=== PATIENT | male | born 1945 | race Caucasian/White ===

== ENCOUNTER 2020-11-29 21:48 | Observation (INO) | payer MEDICARE ==
[2020-11-29] MEDS ORDERED: ASPIRIN 325 MG TAB PO STA (22:08)
[2020-11-29 22:32] LABS: Basophils # (A) 0.1 k/uL (0-0.2); Basophils % (A) 1 %; Eosinophils # (A) 0.3 k/uL (0-0.7); Eosinophils % (A) 3 %; HCT 44.6 % (39.0-53.0); HGB 15.2 gm/dL (13.0-17.5); Lymphocytes # (A) 2.3 k/uL (1.0-4.8); Lymphocytes % (A) 19 %; MCH 28.8 pg (25.0-35.0); MCV 84.6 fL (80.0-100.0); Mean Platelet Volume 9.2; Monocytes # (A) 0.9 k/uL (0-1.0); Monocytes % (A) 7 %; Neutrophils # (A) 8.4 k/uL (1.3-7.7); Neutrophils % (A) 69 %; Platelet Count 220 k/uL (150-450); RBC 5.27 m/uL (4.30-5.90); RDW 14.8 % (11.5-15.5); WBC 12.1 k/uL (3.8-10.6)
[2020-11-29 22:42] LABS: ALT 19 U/L (4-49); AST 19 U/L (17-59); African American GFR (CKD) >90 (>60 ml/min/1.73 sqM); Albumin 3.9 g/dL (3.5-5.0); Alkaline Phosphatase 79 U/L (38-126); Anion Gap 9 mmol/L; Blood Urea Nitrogen 18 mg/dL (9-20); Calcium 9.5 mg/dL (8.4-10.2); Carbon Dioxide 28 mmol/L (22-30); Chloride 102 mmol/L (98-107); Glucose 121 mg/dL (74-99); Non-African American GFR(CKD) 86 (>60 ml/min/1.73 sqM); Potassium 4.4 mmol/L (3.5-5.1); Sodium 139 mmol/L (137-145); Total Bilirubin 0.4 mg/dL (0.2-1.3); Total Protein 6.9 g/dL (6.3-8.2)
--- NOTE | 2020-11-29 22:43 | ED ---
General Adult HPI - General Chief complaint: Neuro Symptoms/Deficit Stated complaint: TIA Time Seen by Provider: 11/29/20 21:55 Source: patient, EMS Mode of arrival: EMS Limitations: no limitations - History of Present Illness Initial comments: 75-year-old male past history of asthma, COPD, diabetes who presents to the emergency department with reported symptoms of a possible TIA. He reports that around 3 PM he had 45 minutes worth of right-sided facial droop, right upper and lower extremity weakness. His noted the symptoms. He went into [facility] and by the time he got there his symptoms resolved. He does report to a similar event on November 12 when he was at the [facility]. Patient denies previous history of stroke. Denies any recurrence of the symptoms today. His workup at [facility] was essentially negative. They did request transfer for neurology consultation. Patient denies chest pain or shortness of breath. No headaches, fevers or chills. No alleviating, Perceptin or modifying factors - Related Data Home Medications Medication Instructions Recorded Confirmed Albuterol Sulfate [Proventil Hfa] 2 puff INHALATION RT-Q6H PRN 10/27/15 11/29/20 Atorvastatin Calcium [Lipitor] 80 mg PO DAILY 10/27/15 11/29/20 Isosorbide Mononitrate ER [Imdur] 60 mg PO DAILY 10/27/15 11/29/20 metFORMIN HCL 1,000 mg PO BID 10/27/15 11/29/20 Insulin Glargine [Lantus] 55 unit SQ Q12H 10/28/15 11/29/20 Albuterol Nebulized [Ventolin 2.5 mg INHALATION RT-Q4H PRN 11/29/20 11/29/20 Nebulized] Aspirin EC [Ecotrin Low Dose] 81 mg PO DAILY 11/29/20 11/29/20 Budesonide/Formoterol Fumarate 2 puff INHALATION RT-BID 11/29/20 11/29/20 [Symbicort 160-4.5 Mcg Inhaler] Cetirizine HCl [Zyrtec] 10 mg PO DAILY 11/29/20 11/29/20 Cholecalciferol [Vitamin D3 (25 25 mcg PO DAILY 11/29/20 11/29/20 Mcg = 1000 Iu)] Clotrimazole Cream [Lotrimin Cream] 1 applic TOPICAL BID 11/29/20 11/29/20 Cyanocobalamin (Vitamin B-12) 1,000 mcg PO DAILY 11/29/20 11/29/20 [Vitamin B-12] Donepezil [Aricept] 10 mg PO HS 11/29/20 11/29/20 Fluocinonide 1 applic TOPICAL BID PRN 11/29/20 11/29/20 Fluticasone Nasal [place] [Flonase 2 spray EA NOSTRIL DAILY PRN 11/29/20 11/29/20 Nasal [place]] Furosemide [Lasix] 20 mg PO DAILY 11/29/20 11/29/20 HYDROcodone/APAP 10-325MG [[place] 1 tab PO Q6H PRN 11/29/20 11/29/20 10-325] Ketoconazole [Nizoral A-D] 1 applic TOPICAL DIRECTED 11/29/20 11/29/20 Liraglutide [Victoza 2-Ar] 1.2 mg SQ DAILY 11/29/20 11/29/20 Losartan [Cozaar] 50 mg PO DAILY 11/29/20 11/29/20 Metoprolol Tartrate [Lopressor] 25 mg PO BID 11/29/20 11/29/20 Montelukast [Singulair] 10 mg PO DAILY 11/29/20 11/29/20 Multivitamins, Thera [Multivitamin 1 tab PO BID 11/29/20 11/29/20 (formulary)] Omeprazole 20 mg PO DAILY 11/29/20 11/29/20 Tiotropium 18 Mcg/Puff [Spiriva] 1 puff INHALATION RT-DAILY 11/29/20 11/29/20 Triamcinolone 0.025% Cream 1 applic TOPICAL BID 11/29/20 11/29/20 [Kenalog 0.025% Cream] methocarbamoL [Robaxin] 500 mg PO BID 11/29/20 11/29/20 Previous Rx's Medication Instructions Recorded Clopidogrel [Plavix] 75 mg PO DAILY #30 tab 12/01/20 Doxycycline [Vibramycin] 100 mg PO BID #4 cap 12/01/20 Allergies Allergy/AdvReac Type Severity Reaction Status Date / Time No Known Allergies Allergy Verified 11/29/20 22:01 Review of Systems ROS Statement: Those systems with pertinent positive or pertinent negative responses have been documented in the HPI. ROS Other: All systems not noted in ROS Statement are negative. Past Medical History Past Medical History: Asthma, COPD, Diabetes Mellitus, Hypertension, Pneumonia, Respiratory Disorder, Sleep Apnea/CPAP/BIPAP History of Any Multi-Drug Resistant Organisms: None Reported Past Surgical History: Heart Catheterization With Stent, Orthopedic Surgery, Tonsillectomy Additional Past Surgical History / Comment(s): Carpal Tunnel, right jaw cartilage replacement, umbilical hernia repair. Stent placement x2, about 20yrs ago-unsure date Past Anesthesia/Blood Transfusion Reactions: No Reported Reaction Date of Last Stent Placement:: unknown, around 20yrs ago Past Psychological History: Anxiety Past Alcohol Use History: Daily Past Drug Use History: None Reported - Past Family History Mother Family Medical History: Cancer Additional Family Medical History / Comment(s): of lung Ca Father Family Medical History: Diabetes Mellitus, Dialysis General Exam Limitations: no limitations General appearance: alert, in no apparent distress Head exam: Present: atraumatic, normocephalic, normal inspection Eye exam: Present: normal appearance, PERRL, EOMI. Absent: scleral icterus, conjunctival injection, periorbital swelling ENT exam: Present: mucous membranes moist, other (right TM is sim, opaque, appears scarred) Neck exam: Present: normal inspection. Absent: tenderness, meningismus, lymphadenopathy Respiratory exam: Present: normal lung sounds bilaterally. Absent: respiratory distress, wheezes, rales, rhonchi, stridor Cardiovascular Exam: Present: regular rate, normal rhythm, normal heart sounds. Absent: systolic murmur, diastolic murmur, rubs, gallop, clicks GI/Abdominal exam: Present: soft, normal bowel sounds. Absent: distended, tenderness, guarding, rebound, rigid Extremities exam: Present: normal inspection, full ROM, normal capillary refill. Absent: tenderness, pedal edema, joint swelling, calf tenderness Back exam: Present: normal inspection Neurological exam: Present: alert, oriented X3, CN II-XII intact Psychiatric exam: Present: normal affect, normal mood Skin exam: Present: warm, dry, intact, normal color. Absent: rash Course Vital Signs 11/29/20 21:55 Temperature 98.0 F Pulse Rate 75 Respiratory 20 Rate Blood Pressure 137/75 O2 Sat by Pulse 95 Oximetry EKG Findings - EKG Comments: EKG Findings:: EKG demonstrates a normal sinus rhythm with a ventricular rate of 73. GA interval 176. QRS 90. QTC 427. No acute ST segment elevations or depressions Medical Decision Making - Medical Decision Making Upon arrival the patient is placed into room 6. A thorough history and physical exam was performed. NIH is negative at this time. I did review the patient's laboratory studies and CT. Laboratory studies are repeated. Did recommend hospitalization for patient did agree to. Spoke with Dr. Mckenzie who agreed to admit the patient. I will consult neurology. Echo and carotid Dopplers ordered. Patient was given a full dose aspirin as he has not received one yet. Patient remained stable condition awaiting a bed on the floor - Lab Data Result diagrams: 11/30/20 03:36 11/30/20 03:36 Lab Results 11/29/20 11/29/20 Range/Units 22:18 22:18 WBC 12.1 H (3.8-10.6) k/uL RBC 5.27 (4.30-5.90) m/uL Hgb 15.2 (13.0-17.5) gm/dL Hct 44.6 (39.0-53.0) % MCV 84.6 (80.0-100.0) fL MCH 28.8 (25.0-35.0) pg MCHC 34.0 (31.0-37.0) g/dL RDW 14.8 (11.5-15.5) % Plt Count 220 (150-450) k/uL MPV 9.2 Neutrophils % 69 % Lymphocytes % 19 % Monocytes % 7 % Eosinophils % 3 % Basophils % 1 % Neutrophils # 8.4 H (1.3-7.7) k/uL Lymphocytes # 2.3 (1.0-4.8) k/uL Monocytes # 0.9 (0-1.0) k/uL Eosinophils # 0.3 (0-0.7) k/uL Basophils # 0.1 (0-0.2) k/uL Sodium 139 (137-145) mmol/L Potassium 4.4 (3.5-5.1) mmol/L Chloride 102 (98-107) mmol/L Carbon Dioxide 28 (22-30) mmol/L Anion Gap 9 mmol/L BUN 18 (9-20) mg/dL Creatinine 0.86 (0.66-1.25) mg/dL Est GFR (CKD-EPI)AfAm >90 (>60 ml/min/1.73 sqM) Est GFR (CKD-EPI)NonAf 86 (>60 ml/min/1.73 sqM) Glucose 121 H (74-99) mg/dL Calcium 9.5 (8.4-10.2) mg/dL Total Bilirubin 0.4 (0.2-1.3) mg/dL AST 19 (17-59) U/L ALT 19 (4-49) U/L Alkaline Phosphatase 79 (38-126) U/L Total Protein 6.9 (6.3-8.2) g/dL Albumin 3.9 (3.5-5.0) g/dL Disposition Clinical Impression: Transient cerebral ischemia Disposition: ADMITTED IP TO THIS [facility] Condition: Stable Is patient prescribed a controlled substance at d/c from ED?: No Decision to Admit Reason: Admit from EC Decision Date: 11/29/20 Decision Time: 22:55
[2020-11-29] MEDS ORDERED: NALOXONE 0.4 MG/ML 1 ML VIAL IV PRN (22:55)
[2020-11-29] MEDS ORDERED: FLUTICASONE 50MCG/SPRAY NASAL 16GM EA NOSTRIL PRN (23:46)
[2020-11-29] MEDS ORDERED: BETAMETHASONE DIPROPIONATE 0.05% CREAM 15 GM TUBE TOPICAL PRN (23:46)
[2020-11-29] MEDS ORDERED: ALBUTEROL HFA INHALER INHALATION PRN (23:46)
[2020-11-30] MEDS: INSULIN DETEMIR (LEVEMIR) 100 UNIT/ML SYR SQ SCH ×3 (00:36→22:21)
[2020-11-30] MEDS: ATORVASTATIN 80 MG TAB PO SCH ×2 (00:36→08:13)
[2020-11-30 00:43] LABS: Glucose,Whole Blood 170 mg/dL (75-99)
[2020-11-30 04:14] LABS: Basophils # (A) 0.1 k/uL (0-0.2); Basophils % (A) 1 %; Eosinophils # (A) 0.3 k/uL (0-0.7); Eosinophils % (A) 3 %; HCT 44.1 % (39.0-53.0); HGB 14.5 gm/dL (13.0-17.5); Lymphocytes # (A) 2.3 k/uL (1.0-4.8); Lymphocytes % (A) 22 %; MCH 28.4 pg (25.0-35.0); MCHC 32.9 g/dL (31.0-37.0); MCV 86.3 fL (80.0-100.0); Mean Platelet Volume 9.5; Monocytes # (A) 0.8 k/uL (0-1.0); Monocytes % (A) 8 %; Neutrophils % (A) 66 %; Platelet Count 206 k/uL (150-450); RBC 5.11 m/uL (4.30-5.90); RDW 14.6 % (11.5-15.5); WBC 10.7 k/uL (3.8-10.6)
[2020-11-30 04:24] LABS: African American GFR (CKD) >90 (>60 ml/min/1.73 sqM); Anion Gap 7 mmol/L; Blood Urea Nitrogen 19 mg/dL (9-20); Calcium 9.4 mg/dL (8.4-10.2); Carbon Dioxide 28 mmol/L (22-30); Chloride 101 mmol/L (98-107); Glucose 186 mg/dL (74-99); Non-African American GFR(CKD) 83 (>60 ml/min/1.73 sqM); Potassium 4.4 mmol/L (3.5-5.1); Sodium 136 mmol/L (137-145)
[2020-11-30 07:08] LABS: Glucose,Whole Blood 104 mg/dL (75-99)
[2020-11-30] MEDS: FUROSEMIDE 20 MG TAB PO SCH (08:13)
[2020-11-30] MEDS: PANTOPRAZOLE 40 MG TABLET PO SCH (08:13)
[2020-11-30] MEDS: CHOLECALCIFEROL 25 MCG (1000 IU) TABLET PO SCH (08:13)
[2020-11-30] MEDS: ASPIRIN 81 MG PO SCH (08:13)
[2020-11-30] MEDS: CYANOCOBALAMIN 500 MCG TAB PO SCH (08:13)
[2020-11-30] MEDS: MULTIVITAMINS, THERA 1 EACH TAB PO SCH ×2 (08:13→22:20)
[2020-11-30] MEDS: METOPROLOL TARTRATE 25 MG TAB PO SCH ×2 (08:13→22:20)
[2020-11-30] MEDS: MONTELUKAST 10 MG TAB PO SCH (08:14)
[2020-11-30] MEDS: ISOSORBIDE MONONITRATE ER 60 MG TAB.ER.24H PO SCH (08:14)
[2020-11-30] MEDS: LOSARTAN 50 MG TAB PO SCH (08:14)
[2020-11-30] MEDS: LORATADINE 10 MG TAB PO SCH (08:14)
[2020-11-30] MEDS: methocarbamoL 500 MG TAB PO SCH ×2 (08:14→22:20)
[2020-11-30] MEDS: IPRATROPIUM 0.5 MG/2.5 ML NEBU INHALATION SCH ×4 (08:30→20:05)
[2020-11-30] MEDS: ALBUTEROL NEBULIZED 2.5 MG/3 ML INHALATION PRN ×2 (08:30→11:36)
--- NOTE | 2020-11-30 10:05 | US ---
EXAMINATION TYPE: US carotid duplex BILAT DATE OF EXAM: 11/30/2020 COMPARISON: NONE CLINICAL HISTORY: suspected tia. TIA EXAM MEASUREMENTS: RIGHT: Peak Systolic Velocity (PSV) cm/sec ----- Right CCA: 102.6 ----- Right ICA: 164.0 ----- Right ECA: 175.6 ICA/CCA ratio: 1.6 RIGHT: End Diastole cm/sec ----- Right CCA: 27.0 ----- Right ICA: 47.9 ----- Right ECA: 38.6 LEFT: Peak Systolic Velocity (PSV) cm/sec ----- Left CCA: 99.5 ----- Left ICA: 114.0 ----- Left ECA: 125.3 ICA/CCA ratio: 1.1 LEFT: End Diastole cm/sec ----- Left CCA: 18.7 ----- Left ICA: 23.6 ----- Left ECA: 0 VERTEBRALS (direction of flow): Right Vertebral: Antegrade Left Vertebral: Antegrade Rhythm: Normal , Color Doppler, spectral Doppler imaging performed of the carotid arteries. Waveform analysis does n ot show significant stenosis of the internal carotid arteries. No significant stenosis seen IMPRESSION: No hemodynamic significant stenosis of the proximal internal carotid arteries by Doppler criteria, an indirect measurement of carotid stenosis Criteria for Assigning % of Stenosis / Diameter reduction (Estimation based on the indirect measurements of the internal carotid artery velocities (ICA PSV). 1. Normal (no stenosis)=ICA PSV < 125 cm/s: ratio < 2.0: ICA EDV<40 cm/s. 2. Less than 50% stenosis=ICA PSV < 125 cm/s: ratio < 2.0: ICA EDV<40 cm/s. 3. 50 to 69% stenosis=ICA PSV of 125 to 230 cm/s: ration 2.0 ? 4.0: ICA EDV 40-100 cm/s. 4. Greater than 70% stenosis to near occlusion= ICA PSV > 230 cm/s: ratio > 4.0: ICA EDV > 100 cm/s. 5. Near occlusion= ICA PSV velocities may be low or undetectable: variable ratio and ICA EDV. 6. Total occlusion=unable to detect flow.
--- NOTE | 2020-11-30 10:39 | XR ---
EXAMINATION TYPE: XR chest 2V DATE OF EXAM: 11/30/2020 COMPARISON: Prior chest x-ray 10/30/2015 HISTORY: Pneumonia TECHNIQUE: Frontal and lateral views of the chest are obtained. FINDINGS: Some strand-like densities are present at the lung bases which may reflect scarring or ate lectasis. Patient is rotated. Cardiac mediastinal silhouette is stable. Prominence of pulmonary arter y may be indicative of underlying pulmonary artery hypertension. No evident pneumothorax or pleural e ffusion. The aorta is dense. Increased AP diameter chest with flattening the hemidiaphragms is consis tent with COPD. IMPRESSION: Possible basilar atelectasis or scarring, correlate to exclude pneumonia.
[2020-11-30 11:33] LABS: Glucose,Whole Blood 110 mg/dL (75-99)
--- NOTE | 2020-11-30 12:11 | P.CNNES ---
History of Present Illness Consult date: 11/30/20 Requesting physician: Gail Granados Reason for Consult: Acute transient right-sided weakness History of Present Illness: Patient is a 75-year-old male came to the hospital by ambulance yesterday at 9:48 PM for TIA. Patient states that yesterday he developed sudden onset of right hand becoming numb, weak, could not pick Anything with his right hand. Shortly after his right side of the face felt droopy. Than his right leg became numb and could not stand on the right leg. The symptoms lasted for 30-45 minutes, and then started slowly improving, from hand to the face and the last one to improve was the right leg. Symptoms have completely resolved. He denied any problem with vision, slurred speech, double vision or dysphagia. Patient initially went to [facility], but then was transferred to [facility] for neurological evaluation. Patient states that he had exactly similar spell on 11/12/2020, lasting for the same amount of time, but he did not seek medical attention for that event. Denies any other history of strokes TIA. Vital signs on arrival blood pressure 137/75, pulse rate 75 temperature 98.0. EKG shows normal sinus rhythm. Possible anterior infarct, age undetermined. Carotid Doppler showed no hemodynamically significant stenosis of the proximal ICA by Doppler criteria. Antegrade flow in both vertebral arteries. Blood test shows WBC 12.1 hemoglobin 15.2, platelets 220. Chem-20 is normal. Patient's last hemoglobin A1c 7.0 on 10/27/2015. Patient takes aspirin 81 mg, Lipitor 80 mg, Aricept 10 mg besides other medications for blood pressure and diabetes. Patient states that he has diabetes for 15 years, hypertension. He smoked 2-3 pack per day for 30 years, quit 12 years ago. He also used to drink, starting from age 20, and quit 12 years ago. Denies any drugs. Patient also states that he used to take Plavix for about 10-15 years, after he had undergone cardiac stenting. He stopped Plavix several years ago and started full aspirin 325 mg daily. Patient was noticing a lot of ringing in the ears, therefore the dose of aspirin was decreased to 81 mg just 3 days ago. Review of Systems As above in detail. All other review of systems unremarkable. Patient denies any chest pain shortness of breath wheezing or cough. Denies any abdominal pain nausea vomiting diarrhea. All other 14 point review of systems reviewed and noncontributory. Past Medical History Past Medical History: Asthma, COPD, Diabetes Mellitus, Hypertension, Pneumonia, Respiratory Disorder, Sleep Apnea/CPAP/BIPAP History of Any Multi-Drug Resistant Organisms: None Reported Past Surgical History: Heart Catheterization With Stent, Orthopedic Surgery, Tonsillectomy Additional Past Surgical History / Comment(s): Carpal Tunnel, right jaw cartil age replacement, umbilical hernia repair. Stent placement x2, about 20yrs ago- unsure date Past Anesthesia/Blood Transfusion Reactions: No Reported Reaction Date of Last Stent Placement:: unknown, around 20yrs ago Past Psychological History: Anxiety Smoking Status: Former smoker Past Alcohol Use History: Daily Additional Past Alcohol Use History / Comment(s): about a case of beer daily Past Drug Use History: None Reported - Past Family History Mother Family Medical History: Cancer Additional Family Medical History / Comment(s): of lung Ca Father Family Medical History: Diabetes Mellitus, Dialysis Medications and Allergies Home Medications Medication Instructions Recorded Confirmed Type Albuterol Sulfate [Proventil Hfa] 2 puff INHALATION RT-Q6H PRN 10/27/15 11/29/20 History Atorvastatin Calcium [Lipitor] 80 mg PO DAILY 10/27/15 11/29/20 History Isosorbide Mononitrate ER [Imdur] 60 mg PO DAILY 10/27/15 11/29/20 History metFORMIN HCL 1,000 mg PO BID 10/27/15 11/29/20 History Insulin Glargine [Lantus] 55 unit SQ Q12H 10/28/15 11/29/20 History Albuterol Nebulized [Ventolin 2.5 mg INHALATION RT-Q4H PRN 11/29/20 11/29/20 History Nebulized] Aspirin EC [Ecotrin Low Dose] 81 mg PO DAILY 11/29/20 11/29/20 History Budesonide/Formoterol Fumarate 2 puff INHALATION RT-BID 11/29/20 11/29/20 History [Symbicort 160-4.5 Mcg Inhaler] Cetirizine HCl [Zyrtec] 10 mg PO DAILY 11/29/20 11/29/20 History Cholecalciferol [Vitamin D3 (25 25 mcg PO DAILY 11/29/20 11/29/20 History Mcg = 1000 Iu)] Clotrimazole Cream [Lotrimin Cream] 1 applic TOPICAL BID 11/29/20 11/29/20 History Cyanocobalamin (Vitamin B-12) 1,000 mcg PO DAILY 11/29/20 11/29/20 History [Vitamin B-12] Donepezil [Aricept] 10 mg PO HS 11/29/20 11/29/20 History Fluocinonide 1 applic TOPICAL BID PRN 11/29/20 11/29/20 History Fluticasone Nasal [place] [Flonase 2 spray EA NOSTRIL DAILY PRN 11/29/20 11/29/20 History Nasal [place]] Furosemide [Lasix] 20 mg PO DAILY 11/29/20 11/29/20 History HYDROcodone/APAP 10-325MG [[place] 1 tab PO Q6H PRN 11/29/20 11/29/20 History 10-325] Ketoconazole [Nizoral A-D] 1 applic TOPICAL DIRECTED 11/29/20 11/29/20 History Liraglutide [Victoza 2-Ar] 1.2 mg SQ DAILY 11/29/20 11/29/20 History Losartan [Cozaar] 50 mg PO DAILY 11/29/20 11/29/20 History Metoprolol Tartrate [Lopressor] 25 mg PO BID 11/29/20 11/29/20 History Montelukast [Singulair] 10 mg PO DAILY 11/29/20 11/29/20 History Multivitamins, Thera [Multivitamin 1 tab PO BID 11/29/20 11/29/20 History (formulary)] Omeprazole 20 mg PO DAILY 11/29/20 11/29/20 History Tiotropium 18 Mcg/Puff [Spiriva] 1 puff INHALATION RT-DAILY 11/29/20 11/29/20 History Triamcinolone 0.025% Cream 1 applic TOPICAL BID 11/29/20 11/29/20 History [Kenalog 0.025% Cream] methocarbamoL [Robaxin] 500 mg PO BID 11/29/20 11/29/20 History Allergies Allergy/AdvReac Type Severity Reaction Status Date / Time No Known Allergies Allergy Verified 11/29/20 22:01 Physical Examination - Vital Signs Vital Signs: Vital Signs Temp Pulse Pulse Resp BP BP Pulse Ox 11/30/20 08:55 86 11/30/20 08:30 80 11/30/20 07:45 97.7 F 73 20 152/83 92 L 11/30/20 02:00 97.7 F 75 18 155/67 98 11/29/20 23:49 97.7 F 76 20 158/72 93 L 11/29/20 21:55 98.0 F 75 20 137/75 95 Intake and Output 11/29/20 11/30/20 11/30/20 22:59 06:59 14:59 Intake Total 296 Balance 296 Intake: Oral 296 Other: # Voids 1 Weight 107.048 kg 107.048 kg On examination patient is an elderly male, in no acute distress. Patient is alert awake oriented to time place and person. Speech and language functions are normal. Attention and concentration fund of knowledge is adequate. On cranial exam showed pupils are round and reacting to light, visual dawn are full on confrontation, extraocular muscles are intact with no nystagmus. Face is symmetric, tongue protrudes the midline. Palatal elevation sensation normal. Hearing and shoulder shrug normal. Facial sensation is normal. On muscle strength testing there is no pronator drift and the strength is normal in arms and legs distally and proximally. Reflexes are very hypoact zach and plantars are downgoing. Sensory to touch is equal. No neglect on double simultaneous stimulation. No ataxia for [id number] or [id number] testing. Tone and bulk of muscles normal. Gait deferred. There is no obvious bruit, S1 and S2 audible, abdomen soft nontender. Chest is clear. Peripheral pulses present. No edema. 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 Current neurological examination is normal. NIH stroke scale 0. * Hypertension * Diabetes * Hyperlipidemia * Obesity * X tobacco use * Coronary artery disease. Plan: * Patient had 2 recent TIAs manifesting with transient right hemiparesis, each resolved in 35-45 minutes. Patient does have multiple vascular risk factors. We will start patient on Plavix 75 mg daily. Continue aspirin 81 mg daily. * Hemoglobin A1c, fasting lipid panel. * 2-D echo has been completed, results pending. * Continue Lipitor 80 mg daily. * Recommend healthy lifestyles. * Telemetry monitoring so far showing sinus rhythm.
--- NOTE | 2020-11-30 12:12 | P.CNPUL ---
History of Present Illness Consult date: 11/30/20 Reason for consult: other Chief complaint: Right-sided weakness, history of COPD, and sleep apnea History of present illness: 75-year-old white male patient with past medical history of severe COPD with FEV1 of 45% predicted, obstructive sleep apnea patient is on BiPAP with pressures of 18/14 and patient has been demonstrating good compliance, morbid obesity, past history of EtOH abuse currently in remission, diabetes mellitus type 2, hyperlipidemia, coronary artery disease, who came into the hospital on 11/29/2020 for evaluation of acute onset of right-sided facial droop, right upper and right lower extremity weakness and numbness. He was taken to the [facility] per EMS and they tend he got there his symptoms had resolved. Patient had a similar episode on 11/12/2020 when she was [facility]. Denies previous history of CVA. There had been minimal recurrence of his symptoms since admission. This had no other symptoms, no chest pain, no shortness of breath, no fever chills, no headaches. His EKG showed normal sinus rhythm with a rate of [address] segment elevations or depressions. Per the ER chart the workup at the [facility] was essentially negative. Patient was transferred to [facility] for further neurological evaluation. His chest x-ray showed a possible basilar atelectasis or scarring. Carotid Doppler was completed showing no hemodynamically significant stenosis. Echocardiogram is pending. No worsening dyspnea, he is on 3 L of oxygen with a pulse ox of 98%, current blood pressure is 155/67, no fever, remains in sinus mechanism with a controlled rate. He is breathing comfortably, he is free of any neurological deficits at this time. Review of Systems All systems: negative Constitutional: Denies chills, Denies fever Eyes: denies blurred vision, denies pain Ears, nose, mouth and throat: Denies headache, Denies sore throat Cardiovascular: Denies chest pain, Denies shortness of breath Respiratory: Denies cough Gastrointestinal: Denies abdominal pain, Denies diarrhea, Denies nausea, Denies vomiting Musculoskeletal: Denies myalgias Integumentary: Denies pruritus, Denies rash Neurological: Reports motor disturbance, Reports numbness, Reports transient paralysis, Denies weakness Psychiatric: Denies anxiety, Denies depression Endocrine: Denies fatigue, Denies weight change Past Medical History Past Medical History: Asthma, COPD, Diabetes Mellitus, Hypertension, Pneumonia, Respiratory Disorder, Sleep Apnea/CPAP/BIPAP History of Any Multi-Drug Resistant Organisms: None Reported Past Surgical History: Heart Catheterization With Stent, Orthopedic Surgery, Tonsillectomy Additional Past Surgical History / Comment(s): Carpal Tunnel, right jaw cartilage replacement, umbilical hernia repair. Stent placement x2, about 20yrs ago-unsure date Past Anesthesia/Blood Transfusion Reactions: No Reported Reaction Date of Last Stent Placement:: unknown, around 20yrs ago Past Psychological History: Anxiety Smoking Status: Former smoker Past Alcohol Use History: Daily Additional Past Alcohol Use History / Comment(s): about a case of beer daily Past Drug Use History: None Reported - Past Family History Mother Family Medical History: Cancer Additional Family Medical History / Comment(s): of lung Ca Father Family Medical History: Diabetes Mellitus, Dialysis Medications and Allergies Home Medications Medication Instructions Recorded Confirmed Type Albuterol Sulfate [Proventil Hfa] 2 puff INHALATION RT-Q6H PRN 10/27/15 11/29/20 History Atorvastatin Calcium [Lipitor] 80 mg PO DAILY 10/27/15 11/29/20 History Isosorbide Mononitrate ER [Imdur] 60 mg PO DAILY 10/27/15 11/29/20 History metFORMIN HCL 1,000 mg PO BID 10/27/15 11/29/20 History Insulin Glargine [Lantus] 55 unit SQ Q12H 10/28/15 11/29/20 History Albuterol Nebulized [Ventolin 2.5 mg INHALATION RT-Q4H PRN 11/29/20 11/29/20 History Nebulized] Aspirin EC [Ecotrin Low Dose] 81 mg PO DAILY 11/29/20 11/29/20 History Budesonide/Formoterol Fumarate 2 puff INHALATION RT-BID 11/29/20 11/29/20 History [Symbicort 160-4.5 Mcg Inhaler] Cetirizine HCl [Zyrtec] 10 mg PO DAILY 11/29/20 11/29/20 History Cholecalciferol [Vitamin D3 (25 25 mcg PO DAILY 11/29/20 11/29/20 History Mcg = 1000 Iu)] Clotrimazole Cream [Lotrimin Cream] 1 applic TOPICAL BID 11/29/20 11/29/20 History Cyanocobalamin (Vitamin B-12) 1,000 mcg PO DAILY 11/29/20 11/29/20 History [Vitamin B-12] Donepezil [Aricept] 10 mg PO HS 11/29/20 11/29/20 History Fluocinonide 1 applic TOPICAL BID PRN 11/29/20 11/29/20 History Fluticasone Nasal [place] [Flonase 2 spray EA NOSTRIL DAILY PRN 11/29/20 11/29/20 History Nasal [place]] Furosemide [Lasix] 20 mg PO DAILY 11/29/20 11/29/20 History HYDROcodone/APAP 10-325MG [[place] 1 tab PO Q6H PRN 11/29/20 11/29/20 History 10-325] Ketoconazole [Nizoral A-D] 1 applic TOPICAL DIRECTED 11/29/20 11/29/20 History Liraglutide [Victoza 2-Ar] 1.2 mg SQ DAILY 11/29/20 11/29/20 History Losartan [Cozaar] 50 mg PO DAILY 11/29/20 11/29/20 History Metoprolol Tartrate [Lopressor] 25 mg PO BID 11/29/20 11/29/20 History Montelukast [Singulair] 10 mg PO DAILY 11/29/20 11/29/20 History Multivitamins, Thera [Multivitamin 1 tab PO BID 11/29/20 11/29/20 History (formulary)] Omeprazole 20 mg PO DAILY 11/29/20 11/29/20 History Tiotropium 18 Mcg/Puff [Spiriva] 1 puff INHALATION RT-DAILY 11/29/20 11/29/20 History Triamcinolone 0.025% Cream 1 applic TOPICAL BID 11/29/20 11/29/20 History [Kenalog 0.025% Cream] methocarbamoL [Robaxin] 500 mg PO BID 11/29/20 11/29/20 History Allergies Allergy/AdvReac Type Severity Reaction Status Date / Time No Known Allergies Allergy Verified 11/29/20 22:01 Physical Exam Vitals: Vital Signs Temp Pulse Pulse Resp BP BP Pulse Ox 11/30/20 11:56 73 11/30/20 11:36 65 11/30/20 08:55 86 11/30/20 08:30 80 11/30/20 07:45 97.7 F 73 20 152/83 92 L 11/30/20 02:00 97.7 F 75 18 155/67 98 11/29/20 23:49 97.7 F 76 20 158/72 93 L 11/29/20 21:55 98.0 F 75 20 137/75 95 Intake and Output 11/29/20 11/30/20 11/30/20 22:59 06:59 14:59 Intake Total 296 Balance 296 Intake: Oral 296 Other: # Voids 1 Weight 107.048 kg 107.048 kg GENERAL EXAM: Alert, very pleasant, 75-year-old white male, on 3 L of oxygen pulse ox of 98%, comfortable in no apparent distress. HEAD: Normocephalic/atraumatic. EYES: Normal reaction of pupils, equal size. Conjunctiva pink, sclera white. NOSE: Clear with pink turbinates. THROAT: No erythema or exudates. NECK: No masses, no JVD, no thyroid enlargement, no adenopathy. CHEST: No chest wall deformity. Symmetrical expansion. LUNGS: Equal air entry with no crackles, wheeze, rhonchi or dullness. CVS: Regular rate and rhythm, normal S1 and S2, no gallops, no murmurs, no rubs ABDOMEN: Soft, nontender. No hepatosplenomegaly, normal bowel sounds, no guarding or rigidity. EXTREMITIES: No clubbing, no edema, no cyanosis, 2+ pulses and upper and lower extremities. MUSCULOSKELETAL: Muscle strength and tone normal. SPINE: No scoliosis or deformity SKIN: No rashes CENTRAL NERVOUS SYSTEM: Alert and oriented -3. No focal deficits, tone is normal in all 4 extremities. PSYCHIATRIC: Alert and oriented -3. Appropriate affect. Intact judgment and insight. Results - Laboratory Findings CBC and BMP: 11/30/20 03:36 11/30/20 03:36 Abnormal lab findings: Abnormal Labs 11/29/20 11/29/20 11/30/20 22:18 22:18 00:35 WBC 12.1 H Neutrophils # 8.4 H Sodium Glucose 121 H POC Glucose (mg/dL) 170 H 11/30/20 11/30/20 11/30/20 03:36 03:36 07:07 WBC 10.7 H Neutrophils # Sodium 136 L Glucose 186 H POC Glucose (mg/dL) 104 H 11/30/20 11:32 WBC Neutrophils # Sodium Glucose POC Glucose (mg/dL) 110 H - Diagnostic Findings Chest x-ray: report reviewed, image reviewed Additional studies: EKG reviewed, carotid Doppler reviewed Assessment and Plan Plan: Assessment: #1. Chronic COPD, stage III, baseline FEV1 is 41% of predicted, stable at this time #2. Obstructive sleep apnea syndrome on BiPAP at home with pressures of 18/14, with good compliance #3. Acute CVA/TIA, patient presented with acute onset right-sided weakness and numbness however his symptoms rapidly resolved before even reaching the hospital, awaiting neurological evaluation. #4. Recent history of TIA on 11/12/2020 #5. Morbid obesity #6. Past history of 82 which abuse, currently in remission #7. Diabetes mellitus type 2 #8. Hyperlipidemia #9. Coronary arteriosclerosis. #10. Osteoarthritis Plan: Patient is stable from pulmonary perspective, his COPD is not active at this time, his breathing is comfortable, he may continue using BiPAP at bedtime . His normal pressures with pressures of 18/14, echocardiogram has been ordered and pending, carotid Doppler showed no hemodynamically significant stenosis. Chest x-ray just showed possible basilar atelectasis. No fever or chills, no specific complaints, he can be considered for discharge home when cleared by neurology. He can follow up with Dr. Man on an as-needed basis I performed a history & physical examination of the patient and discussed their management with my nurse practitioner, Sydney Mojica. I reviewed the nurse practitioner's note and agree with the documented findings and plan of care. Lung sounds are positive for clear breath sounds. The findings and the impression was discussed with the patient. I attest to the documentation by the nurse practitioner. Time with Patient: Greater than 30
[2020-11-30] MEDS: CLOPIDOGREL 75 MG TAB PO SCH (12:50)
[2020-11-30] MEDS: TRIAMCINOLONE ACET 0.1% OINTMENT 15 GM TUBE TOPICAL SCH ×2 (12:51→22:21)
[2020-11-30] MEDS: CLOTRIMAZOLE 1% CREAM 15 GM TUBE TOPICAL SCH ×2 (12:53→22:20)
--- NOTE | 2020-11-30 14:23 | P.HPIM ---
History of Present Illness 75-year-old male past history of asthma, COPD, diabetes who presents to the emergency department with reported symptoms of a possible TIA. Patient had weakness in the right side lasted for 45 minutes. right-sided facial droop, rig ht upper and lower extremity weakness. His noted the symptoms. He went into [facility] and by the time he got there his symptoms resolved. He does report to a similar event on November 12 when he was at the [facility]. Patient denies previous history of stroke. Denies any recurrence of the symptoms today. His workup at [place] was essentially negative. They did request transfer for neurology consultation. Patient denies chest pain or shortness of breath. No headaches, fevers or chills. Patient had similar symptoms about a month ago but never seek medical attention at that time. Patient is complaining of some increased shortness of breath from baseline patient that is supposed to use 3 L of oxygen but that has not been using lately. Patient does have sleep apnea and obesity restrictive lung disease as well as COPD stage IV. Patient is comparing of cough with a greenish sputum production. Patient denied any fever chills. Patient underwent underwent workup for TIA patient usually uses 325 mg of aspirin which is being switched 81 mg and Plavix is being added. CT of the head showed possible anterior infarct age undetermined carotid Doppler did not show any significant stenosis echocardiogram is still pending. Hemoglobin and A1c is 7. Lipase panel is still pending. Review of Systems REVIEW OF SYSTEMS: CONSTITUTIONAL: No fever, no malaise, no fatigue. HEENT: No recent visual problems or hearing problems. Denied any sore throat. CARDIOVASCULAR: No chest pain, orthopnea, PND, no palpitations, no syncope. PULMONARY: No shortness of breath, no hemoptysis. GASTROINTESTINAL: No diarrhea, no nausea, no vomiting, no abdominal pain. NEUROLOGICAL: As mentioned in HPI HEMATOLOGICAL: Denies any bleeding or petechiae. GENITOURINARY: Denies any burning micturition, frequency, or urgency. MUSCULOSKELETAL/RHEUMATOLOGICAL: Denies any joint pain, swelling, or any muscle pain. ENDOCRINE: Denies any polyuria or polydipsia. The rest of the 14-point review of systems is negative. Past Medical History Past Medical History: Asthma, COPD, Diabetes Mellitus, Hypertension, Pneumonia, Respiratory Disorder, Sleep Apnea/CPAP/BIPAP History of Any Multi-Drug Resistant Organisms: None Reported Past Surgical History: Heart Catheterization With Stent, Orthopedic Surgery, Tonsillectomy Additional Past Surgical History / Comment(s): Carpal Tunnel, right jaw cartilage replacement, umbilical hernia repair. Stent placement x2, about 20yrs ago-unsure date Past Anesthesia/Blood Transfusion Reactions: No Reported Reaction Date of Last Stent Placement:: unknown, around 20yrs ago Past Psychological History: Anxiety Smoking Status: Former smoker Past Alcohol Use History: Daily Additional Past Alcohol Use History / Comment(s): about a case of beer daily Past Drug Use History: None Reported - Past Family History Mother Family Medical History: Cancer Additional Family Medical History / Comment(s): of lung Ca Father Family Medical History: Diabetes Mellitus, Dialysis Medications and Allergies Home Medications Medication Instructions Recorded Confirmed Type Albuterol Sulfate [Proventil Hfa] 2 puff INHALATION RT-Q6H PRN 10/27/15 11/29/20 History Atorvastatin Calcium [Lipitor] 80 mg PO DAILY 10/27/15 11/29/20 History Isosorbide Mononitrate ER [Imdur] 60 mg PO DAILY 10/27/15 11/29/20 History metFORMIN HCL 1,000 mg PO BID 10/27/15 11/29/20 History Insulin Glargine [Lantus] 55 unit SQ Q12H 10/28/15 11/29/20 History Albuterol Nebulized [Ventolin 2.5 mg INHALATION RT-Q4H PRN 11/29/20 11/29/20 History Nebulized] Aspirin EC [Ecotrin Low Dose] 81 mg PO DAILY 11/29/20 11/29/20 History Budesonide/Formoterol Fumarate 2 puff INHALATION RT-BID 11/29/20 11/29/20 History [Symbicort 160-4.5 Mcg Inhaler] Cetirizine HCl [Zyrtec] 10 mg PO DAILY 11/29/20 11/29/20 History Cholecalciferol [Vitamin D3 (25 25 mcg PO DAILY 11/29/20 11/29/20 History Mcg = 1000 Iu)] Clotrimazole Cream [Lotrimin Cream] 1 applic TOPICAL BID 11/29/20 11/29/20 His tory Cyanocobalamin (Vitamin B-12) 1,000 mcg PO DAILY 11/29/20 11/29/20 History [Vitamin B-12] Donepezil [Aricept] 10 mg PO HS 11/29/20 11/29/20 History Fluocinonide 1 applic TOPICAL BID PRN 11/29/20 11/29/20 History Fluticasone Nasal [place] [Flonase 2 spray EA NOSTRIL DAILY PRN 11/29/20 11/29/20 History Nasal [place]] Furosemide [Lasix] 20 mg PO DAILY 11/29/20 11/29/20 History HYDROcodone/APAP 10-325MG [[place] 1 tab PO Q6H PRN 11/29/20 11/29/20 History 10-325] Ketoconazole [Nizoral A-D] 1 applic TOPICAL DIRECTED 11/29/20 11/29/20 History Liraglutide [Victoza 2-Ar] 1.2 mg SQ DAILY 11/29/20 11/29/20 History Losartan [Cozaar] 50 mg PO DAILY 11/29/20 11/29/20 History Metoprolol Tartrate [Lopressor] 25 mg PO BID 11/29/20 11/29/20 History Montelukast [Singulair] 10 mg PO DAILY 11/29/20 11/29/20 History Multivitamins, Thera [Multivitamin 1 tab PO BID 11/29/20 11/29/20 History (formulary)] Omeprazole 20 mg PO DAILY 11/29/20 11/29/20 History Tiotropium 18 Mcg/Puff [Spiriva] 1 puff INHALATION RT-DAILY 11/29/20 11/29/20 History Triamcinolone 0.025% Cream 1 applic TOPICAL BID 11/29/20 11/29/20 History [Kenalog 0.025% Cream] methocarbamoL [Robaxin] 500 mg PO BID 11/29/20 11/29/20 History Allergies Allergy/AdvReac Type Severity Reaction Status Date / Time No Known Allergies Allergy Verified 11/29/20 22:01 Physical Exam Vitals: Vital Signs Temp Pulse Pulse Resp BP BP Pulse Ox 11/30/20 11:56 73 11/30/20 11:36 65 11/30/20 08:55 86 11/30/20 08:30 80 11/30/20 07:45 97.7 F 73 20 152/83 92 L 11/30/20 02:00 97.7 F 75 18 155/67 98 11/29/20 23:49 97.7 F 76 20 158/72 93 L 11/29/20 21:55 98.0 F 75 20 137/75 95 Intake and Output 11/29/20 11/30/20 11/30/20 22:59 06:59 14:59 Intake Total 656 Balance 656 Intake: Oral 656 Other: # Voids 1 Weight 107.048 kg 107.048 kg PHYSICAL EXAMINATION: GENERAL: The patient is alert and oriented x3, not in any acute distress. Morbidly obese HEENT: Pupils are round and equally reacting to light. EOMI. No scleral icterus. No conjunctival pallor. Normocephalic, atraumatic. No pharyngeal erythema. No thyromegaly. CARDIOVASCULAR: S1 and S2 present. No murmurs, rubs, or gallops. PULMONARY: Chest is clear to auscultation, no wheezing or crackles. ABDOMEN: Soft, nontender, nondistended, normoactive bowel sounds. No palpable organomegaly. MUSCULOSKELETAL: No joint swelling or deformity. EXTREMITIES: No cyanosis, clubbing, or pedal edema. NEUROLOGICAL: Gross neurological examination did not reveal any focal deficits. SKIN: No rashes. Results CBC & Chem 7: 11/30/20 03:36 11/30/20 03:36 Labs: Abnormal Lab Results - Last 24 Hours (Table) 11/29/20 11/29/20 11/30/20 Range/Units 22:18 22:18 00:35 WBC 12.1 H (3.8-10.6) k/uL Neutrophils # 8.4 H (1.3-7.7) k/uL Sodium (137-145) mmol/L Glucose 121 H (74-99) mg/dL POC Glucose (mg/dL) 170 H (75-99) mg/dL 11/30/20 11/30/20 11/30/20 Range/Units 03:36 03:36 07:07 WBC 10.7 H (3.8-10.6) k/uL Neutrophils # (1.3-7.7) k/uL Sodium 136 L (137-145) mmol/L Glucose 186 H (74-99) mg/dL POC Glucose (mg/dL) 104 H (75-99) mg/dL 11/30/20 Range/Units 11:32 WBC (3.8-10.6) k/uL Neutrophils # (1.3-7.7) k/uL Sodium (137-145) mmol/L Glucose (74-99) mg/dL POC Glucose (mg/dL) 110 H (75-99) mg/dL Thrombosis Risk Factor Assmnt - Choose All That Apply Each Factor Represents 1 point: Abnormal pulmonary function (COPD) Each Risk Factor Represents 2 Points: Age 61-74 years Thrombosis Risk Factor Assessment Total Risk Factor Score: 3 Thrombosis Risk Factor Assessment Level: Moderate Risk Assessment and Plan Plan: -TIA twice in last month. Patient underwent workup for TIA. Presently doesn't have any symptoms patient the will be started on Plavix cut down the aspirin to 81 mg continue with statin awaiting lipase panel. Pending echocardiogram rest of the workup as mentioned in HPI -Bacterial bronchitis patient was started on doxycycline -COPD without any acute exacerbation patient quit smoking couple years ago -Obstructive sleep apnea with restrictive lung disease continue his CPAP machine -Type 2 diabetes mellitus -Hyperlipidemia -Obesity -Coronary artery disease DVT prophylaxis early ambulation
[2020-11-30 16:52] LABS: Glucose,Whole Blood 144 mg/dL (75-99)
--- NOTE | 2020-11-30 18:15 | ECHOF ---
Referral Reason:suspected tia MEASUREMENTS -------- HEIGHT: 170.2 cm WEIGHT: 107.0 kg BP: 155/67 RVIDd: 3.4 cm (< 3.3) IVSd: 1.3 cm (0.6 - 1.1) LVIDd: 3.2 cm (3.9 - 5.3) LVPWd: 1.3 cm (0.6 - 1.1) IVSs: 2.0 cm LVIDs: 2.1 cm LVPWs: 1.9 cm LAESV Index (A-L): 16.45 ml/m Ao Diam: 3.0 cm (2.0 - 3.7) AV Cusp: 1.0 cm (1.5 - 2.6) MV EXCURSION: 16.486 mm (> 18.000) MV EF SLOPE: 75 mm/s (70 - 150) EPSS: 2.6 cm MV E Chuck: 0.90 m/s MV DecT: 234 ms MV A Chuck: 1.04 m/s MV E/A Ratio: 0.86 RAP: 5.00 mmHg RVSP: 25.72 mmHg FINDINGS -------- Sinus rhythm. This was a technically adequate study. The left ventricular size is normal. There is mild concentric left ventricular hypertrophy. Overa ll left ventricular systolic function is normal with, an EF between 55 - 60 %. The diastolic fillin g pattern is normal for the age of the patient 9.74. The right ventricle is mildly enlarged. Normal LA size by volume 22+/-6 ml/m2. The right atrial size is normal. Interatrial and interventricular septum intact. There is mild aortic valve sclerosis. The mitral valve is normal. There is trace to mild mitral regurgitation. The tricuspid valve appears structurally normal. Mild tricuspid regurgitation present. Right vent ricular systolic pressure is normal at < 35 mmHg. The pulmonic valve was not well visualized. The aortic root size is normal. Normal inferior vena cava with normal inspiratory collapse consistent with estimated right atrial pre ssure of 5 mmHg. There is no pericardial effusion. CONCLUSIONS -------- 1. There is mild concentric left ventricular hypertrophy. 2. Overall left ventricular systolic function is normal with, an EF between 55 - 60 %. 3. The right ventricle is mildly enlarged. 4. Normal LA size by volume 22+/-6 ml/m2. 5. There is mild aortic valve sclerosis. 6. There is trace to mild mitral regurgitation. 7. Mild tricuspid regurgitation present. 8. There is no pericardial effusion. OFF PRE[employer] SERVICE REPRESENTATIVE: Angélica Melissa RDCS
[2020-11-30 20:24] LABS: Glucose,Whole Blood 152 mg/dL (75-99)
[2020-11-30] MEDS ORDERED: DONEPEZIL 10 MG TAB PO SCH (21:00)
[2020-11-30] MEDS: DOXYCYCLINE 100 MG CAP PO SCH (22:21)
[2020-11-30 23:02] LABS: Hemoglobin A1C 6.9 % (4.0-6.0)
[2020-12-01] MEDS: HYDROcodone/APAP 10-325MG 1 EACH TAB PO PRN ×2 (05:03→11:57)
[2020-12-01] MEDS: IPRATROPIUM 0.5 MG/2.5 ML NEBU INHALATION SCH ×2 (07:19→11:45)
[2020-12-01 07:25] LABS: Glucose,Whole Blood 105 mg/dL (75-99)
[2020-12-01 08:49] VITALS: BP 135/74; RESP 18; TEMP 98.1
[2020-12-01] MEDS: DOXYCYCLINE 100 MG CAP PO SCH (08:50)
[2020-12-01] MEDS: ATORVASTATIN 80 MG TAB PO SCH (08:50)
[2020-12-01] MEDS: CHOLECALCIFEROL 25 MCG (1000 IU) TABLET PO SCH (08:50)
[2020-12-01] MEDS: LORATADINE 10 MG TAB PO SCH (08:51)
[2020-12-01] MEDS: LOSARTAN 50 MG TAB PO SCH (08:51)
[2020-12-01] MEDS: MULTIVITAMINS, THERA 1 EACH TAB PO SCH (08:51)
[2020-12-01] MEDS: CYANOCOBALAMIN 500 MCG TAB PO SCH (08:51)
[2020-12-01] MEDS: ISOSORBIDE MONONITRATE ER 60 MG TAB.ER.24H PO SCH (08:51)
[2020-12-01] MEDS: METOPROLOL TARTRATE 25 MG TAB PO SCH (08:51)
[2020-12-01] MEDS: methocarbamoL 500 MG TAB PO SCH (08:51)
[2020-12-01] MEDS: ASPIRIN 81 MG PO SCH (08:51)
[2020-12-01] MEDS: PANTOPRAZOLE 40 MG TABLET PO SCH (08:51)
[2020-12-01] MEDS: FUROSEMIDE 20 MG TAB PO SCH (08:51)
[2020-12-01] MEDS: CLOPIDOGREL 75 MG TAB PO SCH (08:51)
[2020-12-01] MEDS: TRIAMCINOLONE ACET 0.1% OINTMENT 15 GM TUBE TOPICAL SCH (08:52)
[2020-12-01] MEDS: INSULIN DETEMIR (LEVEMIR) 100 UNIT/ML SYR SQ SCH (08:52)
[2020-12-01] MEDS: CLOTRIMAZOLE 1% CREAM 15 GM TUBE TOPICAL SCH (08:52)
[2020-12-01] MEDS: MONTELUKAST 10 MG TAB PO SCH (08:56)
[2020-12-01 09:27] LABS: Chol/HDL Ratio 4.07
[2020-12-01 11:57] VITALS: PULSE 72
[2020-12-01 12:17] LABS: Glucose,Whole Blood 79 mg/dL (75-99)
--- NOTE | 2020-12-01 12:51 | P.DS ---
Providers Date of admission: 11/29/20 22:55 Attending physician: Saleem Mckenzie Consults: 11/29/20 22:56 Consult Physician Urgent Consulting Provider: Santo Ramirez Reason/Comments: acute transient right sided weakness Do you want consulting provider notified?: Yes Primary care physician: [facility] Course: 75-year-old male past history of asthma, COPD, diabetes who presents to the emergency department with reported symptoms of a possible TIA. Patient had weakness in the right side lasted for 45 minutes. right-sided facial droop, right upper and lower extremity weakness. His noted the symptoms. He went into [facility] and by the time he got there his symptoms resolved. He does report to a similar event on November 12 when he was at the [facility]. Patient denies previous history of stroke. Denies any recurrence of the symptoms today. His workup at [place] was essentially negative. They did request transfer for neurology consultation. Patient denies chest pain or shortness of breath. No headaches, fevers or chills. Patient had similar symptoms about a month ago but never seek medical attention at that time. Patient is complaining of some increased shortness of breath from baseline patient that is supposed to use 3 L of oxygen but that has not been using lately. Patient does have sleep apnea and obesity restrictive lung disease as well as COPD stage IV. Patient is comparing of cough with a greenish sputum production. Patient denied any fever chills. Patient underwent underwent workup for TIA patient usually uses 325 mg of a spirin which is being switched 81 mg and Plavix is being added. CT of the head showed possible anterior infarct age undetermined carotid Doppler did not show any significant stenosis echocardiogram is still pending. Hemoglobin and A1c is 7. Lipase panel is still pending. 12/01/2020 Patient the head normal ejection fraction on the echo cardiogram no intracardiac thrombus. LDL is 59. PHYSICAL EXAMINATION: GENERAL: The patient is alert and oriented x3, not in any acute distress. Morbidly obese HEENT: Pupils are round and equally reacting to light. EOMI. No scleral icterus. No conjunctival pallor. Normocephalic, atraumatic. No pharyngeal erythema. No thyromegaly. CARDIOVASCULAR: S1 and S2 present. No murmurs, rubs, or gallops. PULMONARY: Chest is clear to auscultation, no wheezing or crackles. ABDOMEN: Soft, nontender, nondistended, normoactive bowel sounds. No palpable organomegaly. MUSCULOSKELETAL: No joint swelling or deformity. EXTREMITIES: No cyanosis, clubbing, or pedal edema. NEUROLOGICAL: Gross neurological examination did not reveal any focal deficits. SKIN: No rashes. Assessment and Plan Plan: -TIA twice in last month. All the workup for stroke is essentially within normal notes patient is being discharged on a 81 mg of aspirin and Plavix 75 mg. -Bacterial bronchitis patient will continue doxycycline for couple more days -COPD without any acute exacerbation patient quit smoking couple years ago -Obstructive sleep apnea with restrictive lung disease continue his CPAP machine -Type 2 diabetes mellitus -Hyperlipidemia -Obesity -Coronary artery disease DVT prophylaxis early ambulation Patient Condition at Discharge: Stable Plan - Discharge Summary New Discharge Prescriptions: New Clopidogrel [Plavix] 75 mg PO DAILY #30 tab Doxycycline [Vibramycin] 100 mg PO BID #4 cap Continue metFORMIN HCL 1,000 mg PO BID Isosorbide Mononitrate ER [Imdur] 60 mg PO DAILY Atorvastatin Calcium [Lipitor] 80 mg PO DAILY Albuterol Sulfate [Proventil Hfa] 2 puff INHALATION RT-Q6H PRN PRN Reason: Shortness Of Breath Insulin Glargine [Lantus] 55 unit SQ Q12H Cholecalciferol [Vitamin D3 (25 Mcg = 1000 Iu)] 25 mcg PO DAILY Cetirizine HCl [Zyrtec] 10 mg PO DAILY Budesonide/Formoterol Fumarate [Symbicort 160-4.5 Mcg Inhaler] 2 puff INHALATION RT-BID Albuterol Nebulized [Ventolin Nebulized] 2.5 mg INHALATION RT-Q4H PRN PRN Reason: Shortness Of Breath Triamcinolone 0.025% Cream [Kenalog 0.025% Cream] 1 applic TOPICAL BID Tiotropium 18 Mcg/Puff [Spiriva] 1 puff INHALATION RT-DAILY methocarbamoL [Robaxin] 500 mg PO BID Omeprazole 20 mg PO DAILY Montelukast [Singulair] 10 mg PO DAILY Metoprolol Tartrate [Lopressor] 25 mg PO BID Losartan [Cozaar] 50 mg PO DAILY Liraglutide [Victoza 2-Ar] 1.2 mg SQ DAILY Ketoconazole [Nizoral A-D] 1 applic TOPICAL DIRECTED Aspirin EC [Ecotrin Low Dose] 81 mg PO DAILY HYDROcodone/APAP 10-325MG [[place] 10-325] 1 tab PO Q6H PRN PRN Reason: Pain Furosemide [Lasix] 20 mg PO DAILY Fluticasone Nasal [place] [Flonase Nasal [place]] 2 spray EA NOSTRIL DAILY PRN PRN Reason: Allergy Symptoms Fluocinonide 1 applic TOPICAL BID PRN PRN Reason: Dry Skin Donepezil [Aricept] 10 mg PO HS Cyanocobalamin (Vitamin B-12) [Vitamin B-12] 1,000 mcg PO DAILY Clotrimazole Cream [Lotrimin Cream] 1 applic TOPICAL BID Multivitamins, Thera [Multivitamin (formulary)] 1 tab PO BID Discharge Medication List Albuterol Sulfate [Proventil Hfa] 2 puff INHALATION RT-Q6H PRN 10/27/15 [History] Atorvastatin Calcium [Lipitor] 80 mg PO DAILY 10/27/15 [History] Isosorbide Mononitrate ER [Imdur] 60 mg PO DAILY 10/27/15 [History] metFORMIN HCL 1,000 mg PO BID 10/27/15 [History] Insulin Glargine [Lantus] 55 unit SQ Q12H 10/28/15 [History] Albuterol Nebulized [Ventolin Nebulized] 2.5 mg INHALATION RT-Q4H PRN 11/29/20 [History] Aspirin EC [Ecotrin Low Dose] 81 mg PO DAILY 11/29/20 [History] Budesonide/Formoterol Fumarate [Symbicort 160-4.5 Mcg Inhaler] 2 puff INHALATION RT-BID 11/29/20 [History] Cetirizine HCl [Zyrtec] 10 mg PO DAILY 11/29/20 [History] Cholecalciferol [Vitamin D3 (25 Mcg = 1000 Iu)] 25 mcg PO DAILY 11/29/20 [History] Clotrimazole Cream [Lotrimin Cream] 1 applic TOPICAL BID 11/29/20 [History] Cyanocobalamin (Vitamin B-12) [Vitamin B-12] 1,000 mcg PO DAILY 11/29/20 [History] Donepezil [Aricept] 10 mg PO HS 11/29/20 [History] Fluocinonide 1 applic TOPICAL BID PRN 11/29/20 [History] Fluticasone Nasal [place] [Flonase Nasal [place]] 2 spray EA NOSTRIL DAILY PRN 11/29/20 [History] Furosemide [Lasix] 20 mg PO DAILY 11/29/20 [History] HYDROcodone/APAP 10-325MG [[place] 10-325] 1 tab PO Q6H PRN 11/29/20 [History] Ketoconazole [Nizoral A-D] 1 applic TOPICAL DIRECTED 11/29/20 [History] Liraglutide [Victoza 2-Ar] 1.2 mg SQ DAILY 11/29/20 [History] Losartan [Cozaar] 50 mg PO DAILY 11/29/20 [History] Metoprolol Tartrate [Lopressor] 25 mg PO BID 11/29/20 [History] Montelukast [Singulair] 10 mg PO DAILY 11/29/20 [History] Multivitamins, Thera [Multivitamin (formulary)] 1 tab PO BID 11/29/20 [History] Omeprazole 20 mg PO DAILY 11/29/20 [History] Tiotropium 18 Mcg/Puff [Spiriva] 1 puff INHALATION RT-DAILY 11/29/20 [History] Triamcinolone 0.025% Cream [Kenalog 0.025% Cream] 1 applic TOPICAL BID 11/29/20 [History] methocarbamoL [Robaxin] 500 mg PO BID 11/29/20 [History] Clopidogrel [Plavix] 75 mg PO DAILY #30 tab 12/01/20 [Rx] Doxycycline [Vibramycin] 100 mg PO BID #4 cap 12/01/20 [Rx] Follow up Appointment(s)/Referral(s): Ora Man MD [STAFF PHYSICIAN] - 2 Weeks [facility] [place] [Primary Care Provider] - 3 Days Patient Instructions/Handouts: Transient Ischemic Attack (GEN)
--- NOTE | 2020-12-01 13:34 | P.PN ---
Subjective Progress Note Date: 12/01/20 No further TIAs. Patient doing well. Objective - Vital Signs Vital signs: Vital Signs Temp 98.1 F 12/01/20 08:00 Pulse 72 12/01/20 11:57 Resp 18 12/01/20 08:00 BP 135/74 12/01/20 08:00 Pulse Ox 97 12/01/20 08:00 Intake & Output 11/30/20 12/01/20 12/01/20 18:59 06:59 18:59 Intake Total 952 540 480 Balance 952 540 480 Intake: Oral 952 540 480 Other: # Voids 1 3 - Exam Patient's mental status, speech and language functions are normal. Cranial nerv es are normal. Muscle strength normal. - Labs CBC & Chem 7: 11/30/20 03:36 11/30/20 03:36 Labs: Abnormal Lab Results - Last 24 Hours (Table) 11/30/20 11/30/20 11/30/20 Range/Units 03:36 03:36 16:51 POC Glucose (mg/dL) 144 H (75-99) mg/dL Hemoglobin A1c 6.9 H (4.0-6.0) % Triglycerides 175.0 H (0.0-149.0) mg/dL HDL Cholesterol 30.0 L (40.0-60.0) mg/dL 11/30/20 12/01/20 Range/Units 19:59 07:24 POC Glucose (mg/dL) 152 H 105 H (75-99) mg/dL Hemoglobin A1c (4.0-6.0) % Triglycerides (0.0-149.0) mg/dL HDL Cholesterol (40.0-60.0) mg/dL Assessment and Plan Assessment: * Recurrent TIA 2 (11/12/2020, 11/29/2020), manifesting with right hemiparesis and slurred speech each lasting for 35-45 minutes. Current neurological examination is normal. NIH stroke scale 0. * Hypertension * Diabetes * Hyperlipidemia * Obesity * X tobacco use * Coronary artery disease. Plan: * Patient had 2 recent TIAs manifesting with transient right hemiparesis, each resolved in 35-45 minutes. Patient does have multiple vascular risk factors. Continue dual antiplatelet medications Plavix 75 mg and aspirin 81 mg daily. * Hemoglobin A1c 6.9, fasting lipid panel with cholesterol 122, LDL 57, HDL 35 triglycerides 175. Diabetes is well controlled, and continue Lipitor. Lipids also well controlled. * 2-D echo revealed mild concentric LVH, EF is 55-60%. Normal left atrial size. No embolic source. * Continue Lipitor 80 mg daily. * Recommend healthy lifestyles. * Telemetry monitoring so far showing sinus rhythm. No arrhythmia. * Neurologically clear for discharge.
== END 2020-12-01 13:35 | disposition home or self-care (01) ==
LOC: EC 21:48 → 6NMEDSUR 22:55
PROVIDERS: ADMIT Internal Medicine; ATTEND Internal Medicine
DX: G45.9 Transient cerebral ischemic attack, unspecified (principal); E11.9 Type 2 diabetes mellitus without complications; J44.9 Chronic obstructive pulmonary disease, unspecified; G47.33 Obstructive sleep apnea (adult) (pediatric); I10 Essential (primary) hypertension; I25.10 Atherosclerotic heart disease of native coronary artery without angina pectoris; F41.9 Anxiety disorder, unspecified; H93.19 Tinnitus, unspecified ear; E78.5 Hyperlipidemia, unspecified; E66.01 Morbid (severe) obesity due to excess calories; Z68.37 Body mass index [BMI] 37.0-37.9, adult; F10.11 Alcohol abuse, in remission; M19.90 Unspecified osteoarthritis, unspecified site; J98.4 Other disorders of lung; Z79.4 Long term (current) use of insulin; Z79.51 Long term (current) use of inhaled steroids; Z79.82 Long term (current) use of aspirin; Z79.891 Long term (current) use of opiate analgesic; Z79.02 Long term (current) use of antithrombotics/antiplatelets; Z79.899 Other long term (current) drug therapy; Z87.01 Personal history of pneumonia (recurrent); Z99.89 Dependence on other enabling machines and devices; Z95.5 Presence of coronary angioplasty implant and graft; Z98.890 Other specified postprocedural states; Z87.891 Personal history of nicotine dependence; Z86.73 Personal history of transient ischemic attack (TIA), and cerebral infarction without residual deficits; Z80.1 Family history of malignant neoplasm of trachea, bronchus and lung; Z83.3 Family history of diabetes mellitus; Z84.2 Family history of other diseases of the genitourinary system
CPT/HCPCS: 99285; 36415; 94660 ×2; 94640 ×4; 93005; 93306; 80053; 80048; 80061; 85025 ×2; 83036; 71046; 93880; G0378 ×3